=== PATIENT | male | born 1960 | race Caucasian/White ===

== ENCOUNTER → 2017-06-21 | Outpatient (CLI) | payer OTHER ==
[~2017-06-21] MED LIST: AMLODIPINE5 MG PO; ASPIRIN DELAYE325 MG PO; B12,B-12,B 12500 MC1 PO; B121000 MCG/1 IM; CARVEDILOL25 MG PO; COLCHICINE0.6 MG PO; COREG12.5 M1 PO; CRESTOR40 MG PO; ENDOCET 325 MG-1 TA1 PO; ENDOCET 650 MG-1 TA1 PO; FOLIC ACID1 MG PO; HYDR12.5C PO; INDOCIN25 MG PO; K-TAB10 MEQ PO; LANOXIN0.25 MG; LEVOXYL0.025 MG PO; LEVOXYL0.1 M1 PO; LEVOXYL0.112 MG PO; LIPITOR40 MG PO; LISINOPRIL2.5 MG; MEDROL DOSEPAK4 MG PO; NORCO 325 MG-51 TAB PO; NORVASC2.5 MG PO; PAXIL30 MG PO; PLAVIX75 MG PO; VENTOLIN H0.09 MG/AC INH; VICODIN ES 7501 TAB PO; XANAX0.25 MG PO; ZESTRIL2.5 MG PO; ZESTRIL20 MG PO; ZITHROMAX Z PA250 MG PO; Zestril,Prinivi40 MG PO
[2017-06-21 14:00] LABS: BASO # 0.1 10*3/uL (0.0-0.1); BASO % 0.6 % (0.0-1.0); EOS # 0.4 10*3/uL (0.0-0.4); EOS % 4.6 % (1.0-4.0); HEMATOCRIT 40.9 % (42.0-52.0); HEMOGLOBIN 13.7 g/dl (14.0-18.0); IG # 0.1 10*3/uL (0.0-0.1); LYMPH # 2.5 10*3/uL (1.3-4.4); LYMPH % 29.9 % (27.0-41.0); MEAN CELL VOLUME 97.1 fl (80.0-94.0); MEAN CORPUSCULAR HGB 32.5 pg (27.0-31.0); MEAN CORPUSCULAR HGB CONC 33.5 g/dl (33.0-37.0); MONO # 0.5 10*3/uL (0.1-1.0); MONO % 6.4 % (3.0-9.0); NEUT # 4.8 10*3/uL (2.3-7.9); NEUT % 57.9 % (47.0-73.0); PLATELET COUNT AUTOMATED 358 10*3/uL (130-400); RED BLOOD COUNT 4.21 10*6/uL (4.50-5.90); RED CELL DISTRI WIDTH 13.7 % (0-14.5); WHITE BLOOD COUNT 8.2 10*3/uL (4.8-10.8)
[2017-06-21 17:12] LABS: ALBUMIN 3.4 gm/dl (3.1-4.5); ALKALINE PHOSPHATASE 125 U/L (45-117); BILIRUBIN, DIRECT < 0.1 mg/dL (0.0-0.2); BILIRUBIN, TOTAL 0.2 mg/dl (0.2-1.0); BUN 15 mg/dl (7-24); CARBON DIOXIDE 25 mmol/L (21-32); CHLORIDE 109 mmol/L (98-107); CHOLESTEROL 180 mg/dL (<200); EST GLOM FILT AFRICAN AMERICAN > 60 ml/min; GLUCOSE 96 mg/dL (65-99); HDL CHOLESTEROL 31 mg/dl (40-60); LDL CHOLESTEROL 91 mg/dL (9-159); POTASSIUM 4.1 mmol/L (3.5-5.1); SGOT/AST 12 IU/L (3-35); SGPT/ALT 8 U/L (12-78); SODIUM 143 mmol/L (136-145); THYROXINE (T4) TOTAL 11.6 ug/dl (4.5-12.1); TOTAL PROTEIN 7.3 gm/dL (6.4-8.2); TRIGLYCERIDES 289 mg/dl (<150); VLDL CHOLESTEROL 58 mg/dL (6-40)
== END | disposition home or self-care (01) ==
LOC: LAB 13:28
PROVIDERS: Family Medicine
DX: Z12.5 Encounter for screening for malignant neoplasm of prostate (principal); I10 Essential (primary) hypertension; E03.9 Hypothyroidism, unspecified; R35.1 Nocturia

== ENCOUNTER → 2018-03-01 | Outpatient (CLI) | payer OTHER ==
[2018-03-01 09:12] LABS: BASO # 0.1 10*3/uL (0.0-0.1); BASO % 0.5 % (0.0-1.0); EOS # 0.5 10*3/uL (0.0-0.4); EOS % 5.4 % (1.0-4.0); HEMATOCRIT 42.5 % (42.0-52.0); HEMOGLOBIN 14.4 g/dl (14.0-18.0); LYMPH # 3.3 10*3/uL (1.3-4.4); LYMPH % 33.6 % (27.0-41.0); MEAN CELL VOLUME 100.5 fl (80.0-94.0); MEAN CORPUSCULAR HGB CONC 33.9 g/dl (33.0-37.0); MEAN PLATELET VOLUME 8.6 fl (9.6-12.3); MONO # 0.6 10*3/uL (0.1-1.0); MONO % 6.1 % (3.0-9.0); NEUT # 5.3 10*3/uL (2.3-7.9); NEUT % 54.1 % (47.0-73.0); PLATELET COUNT AUTOMATED 364 10*3/uL (130-400); RED BLOOD COUNT 4.23 10*6/uL (4.50-5.90); RED CELL DISTRI WIDTH 13.3 % (0-14.5); WHITE BLOOD COUNT 9.8 10*3/uL (4.8-10.8)
[2018-03-01 09:32] LABS: ALBUMIN 3.5 gm/dl (3.1-4.5); BILIRUBIN, DIRECT < 0.1 mg/dL (0.0-0.2); BUN 12 mg/dl (7-24); CHLORIDE 108 mmol/L (98-107); CHOLESTEROL 226 mg/dL (<200); CREATININE 0.82 mg/dL (0.70-1.30); POTASSIUM 3.9 mmol/L (3.5-5.1); SGOT/AST 9 IU/L (3-35); SGPT/ALT 9 U/L (12-78); SODIUM 141 mmol/L (136-145); TRIGLYCERIDES 270 mg/dl (<150); VLDL CHOLESTEROL 54 mg/dL (6-40)
[2018-03-01 09:40] LABS: ALKALINE PHOSPHATASE 111 U/L (45-117); HDL CHOLESTEROL 37 mg/dl (40-60); LDL CHOLESTEROL 135 mg/dL (9-159); THYROXINE (T4) TOTAL 12.4 ug/dl (4.5-12.1)
== END | disposition home or self-care (01) ==
LOC: LAB 08:28
PROVIDERS: Family Medicine
DX: E78.00 Pure hypercholesterolemia, unspecified (principal); D64.9 Anemia, unspecified; E03.9 Hypothyroidism, unspecified; R73.9 Hyperglycemia, unspecified

== ENCOUNTER → 2018-09-16 | Outpatient (CLI) | payer OTHER ==
[2018-09-16 14:20] LABS: ALBUMIN 3.6 gm/dl (3.1-4.5); ALKALINE PHOSPHATASE 110 U/L (45-117); BILIRUBIN, DIRECT < 0.1 mg/dL (0.0-0.2); BUN 13 mg/dl (7-24); CREATININE 0.97 mg/dL (0.70-1.30); SGOT/AST 10 IU/L (3-35); SGPT/ALT 18 U/L (12-78); TOTAL PROTEIN 7.4 gm/dL (6.4-8.2)
== END | disposition home or self-care (01) ==
LOC: LAB 13:18
PROVIDERS: Nurse Practitioner Family
DX: Z51.81 Encounter for therapeutic drug level monitoring (principal); Z79.899 Other long term (current) drug therapy

== ENCOUNTER → 2019-05-02 | Outpatient (CLI) | payer OTHER ==
[2019-05-02 09:51] LABS: HEMATOCRIT 39.9 % (42.0-52.0); HEMOGLOBIN 13.6 g/dl (14.0-18.0); MEAN CELL VOLUME 112.1 fl (80.0-94.0); MEAN CORPUSCULAR HGB 38.2 pg (27.0-31.0); MEAN CORPUSCULAR HGB CONC 34.1 g/dl (33.0-37.0); MEAN PLATELET VOLUME 8.7 fl (9.6-12.3); PLATELET COUNT AUTOMATED 304 10*3/uL (130-400); RED BLOOD COUNT 3.56 10*6/uL (4.50-5.90); RED CELL DISTRI WIDTH 12.2 % (0-14.5); WHITE BLOOD COUNT 8.7 10*3/uL (4.8-10.8)
[2019-05-02 10:32] LABS: ALBUMIN 3.3 gm/dl (3.1-4.5); BUN 10 mg/dl (7-24); CHLORIDE 106 mmol/L (98-107); CHOLESTEROL 224 mg/dL (<200); POTASSIUM 4.1 mmol/L (3.5-5.1); SODIUM 142 mmol/L (136-145); TRIGLYCERIDES 315 mg/dl (<150); VLDL CHOLESTEROL 63 mg/dL (6-40)
[2019-05-02 10:37] LABS: VITAMIN D, 25-HYDROXY 54.6 ng/mL (30-100)
[2019-05-02 11:25] LABS: ATYPICAL LYMPHS 1 % (0-0); BASOPHILS 1 % (0-1); PLATELET SUFFICIENCY NORMAL (NORMAL); TOTAL CELLS COUNTED 100 #CELLS
[2019-05-02 11:26] LABS: ALKALINE PHOSPHATASE 101 U/L (45-117); BILIRUBIN, DIRECT < 0.1 mg/dL (0.0-0.2); CREATININE 0.98 mg/dL (0.70-1.30); HDL CHOLESTEROL 39 mg/dl (40-60); LDL CHOLESTEROL 122 mg/dL (9-159); SGOT/AST 13 IU/L (3-35); SGPT/ALT 15 U/L (12-78); THYROXINE (T4) TOTAL 8.9 ug/dl (4.5-12.1); TOTAL PROTEIN 6.6 gm/dL (6.4-8.2)
== END | disposition home or self-care (01) ==
LOC: LAB 08:46
PROVIDERS: Family Medicine
DX: I25.10 Atherosclerotic heart disease of native coronary artery without angina pectoris (principal); E03.9 Hypothyroidism, unspecified; E55.9 Vitamin D deficiency, unspecified; R53.83 Other fatigue

== ENCOUNTER → 2019-11-27 | Outpatient (CLI) | payer OTHER ==
[2019-11-27 11:12] LABS: BASO % 0.5 % (0.0-1.0); EOS # 0.4 10*3/uL (0.0-0.4); EOS % 4.7 % (1.0-4.0); HEMATOCRIT 40.5 % (42.0-52.0); HEMOGLOBIN 13.4 g/dl (14.0-18.0); LYMPH # 2.9 10*3/uL (1.3-4.4); LYMPH % 35.7 % (27.0-41.0); MEAN CELL VOLUME 106.3 fl (80.0-94.0); MEAN CORPUSCULAR HGB 35.2 pg (27.0-31.0); MEAN CORPUSCULAR HGB CONC 33.1 g/dl (33.0-37.0); MEAN PLATELET VOLUME 8.9 fl (9.6-12.3); MONO # 0.6 10*3/uL (0.1-1.0); MONO % 7.4 % (3.0-9.0); NEUT # 4.1 10*3/uL (2.3-7.9); NEUT % 51.5 % (47.0-73.0); PLATELET COUNT AUTOMATED 396 10*3/uL (130-400); RED BLOOD COUNT 3.81 10*6/uL (4.50-5.90)
[2019-11-27 11:33] LABS: THYROID STIM HORMONE (HS) 2.49 uIU/ml (0.358-4.75)
== END | disposition home or self-care (01) ==
LOC: LAB 10:38
PROVIDERS: Family Medicine
DX: E03.9 Hypothyroidism, unspecified (principal); D64.9 Anemia, unspecified

== ENCOUNTER 2020-04-15 14:14 | Emergency (ER) | payer OTHER ==
[~2020-04-15] VITALS: Ht 190.5 cm; Wt 95.3 kg
[2020-04-15 16:51] VITALS: BP 128/75
== END 2020-04-15 16:53 | disposition home or self-care (01) ==
LOC: ED 14:14
DX: S80.01XA Contusion of right knee, initial encounter (principal); S09.90XA Unspecified injury of head, initial encounter; M25.461 Effusion, right knee; M54.5 Low back pain; R42 Dizziness and giddiness; J44.9 Chronic obstructive pulmonary disease, unspecified; I10 Essential (primary) hypertension; I25.10 Atherosclerotic heart disease of native coronary artery without angina pectoris; K21.9 Gastro-esophageal reflux disease without esophagitis; F41.9 Anxiety disorder, unspecified; F17.200 Nicotine dependence, unspecified, uncomplicated; Z98.61 Coronary angioplasty status; Z79.899 Other long term (current) drug therapy; Z79.82 Long term (current) use of aspirin; Z98.890 Other specified postprocedural states; Z90.89 Acquired absence of other organs; W10.8XXA Fall (on) (from) other stairs and steps, initial encounter; Y93.89 Activity, other specified; Y92.098 Other place in other non-institutional residence as the place of occurrence of the external cause; Y99.8 Other external cause status

== ENCOUNTER → 2020-09-17 | Outpatient (CLI) | payer OTHER ==
[2020-09-17 14:14] LABS: HEMATOCRIT 41.2 % (42.0-52.0); MEAN CELL VOLUME 108.1 fl (80.0-94.0); MEAN CORPUSCULAR HGB CONC 33.3 g/dl (33.0-37.0); MEAN PLATELET VOLUME 8.3 fl (9.6-12.3); PLATELET COUNT AUTOMATED 490 10*3/uL (130-400); RED BLOOD COUNT 3.81 10*6/uL (4.50-5.90); WHITE BLOOD COUNT 8.3 10*3/uL (4.8-10.8)
[2020-09-17 14:33] LABS: TOTAL CELLS COUNTED 100 #CELLS
[2020-09-17 14:38] LABS: PLATELET SUFFICIENCY HIGH (NORMAL)
[2020-09-17 14:39] LABS: ALBUMIN 3.3 gm/dl (3.1-4.5); ALKALINE PHOSPHATASE 153 U/L (45-117); BILIRUBIN, DIRECT < 0.1 mg/dL (0.0-0.2); BUN 12 mg/dl (7-24); CHLORIDE 107 mmol/L (98-107); CHOLESTEROL 244 mg/dL (<200); CREATININE 0.87 mg/dL (0.70-1.30); HDL CHOLESTEROL 45 mg/dl (40-60); LDL CHOLESTEROL 151 mg/dL (9-159); POTASSIUM 4.1 mmol/L (3.5-5.1); SGOT/AST 11 IU/L (3-35); SGPT/ALT 20 U/L (12-78); SODIUM 141 mmol/L (136-145); THYROXINE (T4) TOTAL 10.9 ug/dl (4.5-12.1); TOTAL PROTEIN 7.1 gm/dL (6.4-8.2); TRIGLYCERIDES 242 mg/dl (<150); VLDL CHOLESTEROL 48 mg/dL (6-40)
[2020-09-17 14:44] LABS: THYROID STIM HORMONE (HS) 0.265 uIU/ml (0.358-4.75)
== END | disposition home or self-care (01) ==
LOC: LAB 13:42
PROVIDERS: ATTEND Family Medicine
DX: Z12.5 Encounter for screening for malignant neoplasm of prostate (principal); E03.9 Hypothyroidism, unspecified; I10 Essential (primary) hypertension; D64.9 Anemia, unspecified; I25.10 Atherosclerotic heart disease of native coronary artery without angina pectoris

== ENCOUNTER → 2021-05-26 | Outpatient (CLI) | payer OTHER ==
[2021-05-26 12:15] LABS: BASO % 0.4 % (0.0-1.0); EOS # 0.2 10*3/uL (0.0-0.4); EOS % 1.9 % (1.0-4.0); HEMATOCRIT 40.2 % (42.0-52.0); LYMPH % 30.5 % (27.0-41.0); MEAN CELL VOLUME 105.2 fl (80.0-94.0); MEAN CORPUSCULAR HGB 34.6 pg (27.0-31.0); MEAN CORPUSCULAR HGB CONC 32.8 g/dl (33.0-37.0); MEAN PLATELET VOLUME 8.8 fl (9.6-12.3); MONO # 0.5 10*3/uL (0.1-1.0); MONO % 5.4 % (3.0-9.0); NEUT % 61.3 % (47.0-73.0); PLATELET COUNT AUTOMATED 399 10*3/uL (130-400); RED BLOOD COUNT 3.82 10*6/uL (4.50-5.90); RED CELL DISTRI WIDTH 12.2 % (0-14.5); WHITE BLOOD COUNT 9.8 10*3/uL (4.8-10.8)
[2021-05-26 12:43] LABS: BUN 15 mg/dl (7-24); CHLORIDE 110 mmol/L (98-107); CHOLESTEROL 211 mg/dL (<200); CREATININE 0.84 mg/dL (0.70-1.30); POTASSIUM 4.9 mmol/L (3.5-5.1); SODIUM 141 mmol/L (136-145); THYROXINE (T4) TOTAL 7.4 ug/dl (4.5-12.1); TRIGLYCERIDES 194 mg/dl (<150)
[2021-05-26 12:52] LABS: LDL CHOLESTEROL 127 mg/dL (9-159)
== END | disposition home or self-care (01) ==
LOC: LAB 11:51
PROVIDERS: ATTEND Family Medicine
DX: I10 Essential (primary) hypertension (principal); E78.5 Hyperlipidemia, unspecified; E03.9 Hypothyroidism, unspecified; Z79.899 Other long term (current) drug therapy

== ENCOUNTER → 2021-05-30 | Outpatient (CLI) | payer OTHER ==
[2021-05-30 11:18] LABS: VITAMIN D, 25-HYDROXY 59.5 ng/mL (30-100)
== END | disposition home or self-care (01) ==
LOC: LAB 09:21
PROVIDERS: ATTEND Family Medicine
DX: E55.9 Vitamin D deficiency, unspecified (principal); R73.9 Hyperglycemia, unspecified; D64.9 Anemia, unspecified

== ENCOUNTER → 2021-07-17 | Day surgery (SDC) | payer OTHER ==
[~2021-07-17] VITALS: Ht 187.9 cm; Wt 78.9 kg
[~2021-07-17] MED LIST changes: +COLACE100 MG PO; +CRESTOR20 M1 PO; +PERCOCET 5-3251 EACH PO; +VENLAFAXINE75 M1 PO; +ZEGERID 40 MG1 EACH PO; +ZOFRAN4 MG PO
[2021-07-17 09:09] VITALS: BP 149/60
[2021-07-17 11:12] VITALS: BP 170/90
[2021-07-17 11:27] VITALS: BP 126/74
[2021-07-17 11:42] VITALS: BP 161/88
[2021-07-17 11:57] VITALS: BP 141/81
[2021-07-17 12:09] VITALS: BP 127/88
== END | disposition home or self-care (01) ==
LOC: SDC 07-14 13:15
PROVIDERS: ATTEND Surgery
DX: K40.90 Unilateral inguinal hernia, without obstruction or gangrene, not specified as recurrent (principal); J44.9 Chronic obstructive pulmonary disease, unspecified; I25.10 Atherosclerotic heart disease of native coronary artery without angina pectoris; I10 Essential (primary) hypertension; K21.9 Gastro-esophageal reflux disease without esophagitis; F41.9 Anxiety disorder, unspecified; Z95.1 Presence of aortocoronary bypass graft; F17.210 Nicotine dependence, cigarettes, uncomplicated; Z79.899 Other long term (current) drug therapy; Z20.822 Contact with and (suspected) exposure to COVID-19

== ENCOUNTER → 2022-01-27 | Outpatient (CLI) | payer OTHER ==
[2022-01-27 13:09] LABS: CREATININE 0.77 mg/dL (0.70-1.30)
== END | disposition home or self-care (01) ==
LOC: LAB 12:40
PROVIDERS: ATTEND Surgery
DX: Z01.812 Encounter for preprocedural laboratory examination (principal); K40.90 Unilateral inguinal hernia, without obstruction or gangrene, not specified as recurrent

== ENCOUNTER → 2022-01-29 | Outpatient (CLI) | payer OTHER | END | disposition home or self-care (01) | LOC: CT 10:00 → LAB 10:06 | PROVIDERS: ATTEND Surgery | DX: Z01.818 Encounter for other preprocedural examination (principal); K40.90 Unilateral inguinal hernia, without obstruction or gangrene, not specified as recurrent; J43.9 Emphysema, unspecified; I25.10 Atherosclerotic heart disease of native coronary artery without angina pectoris; K44.9 Diaphragmatic hernia without obstruction or gangrene; I71.4 Abdominal aortic aneurysm, without rupture; K57.30 Diverticulosis of large intestine without perforation or abscess without bleeding ==

== ENCOUNTER → 2022-04-02 | Day surgery (SDC) | payer OTHER ==
[~2022-04-02] VITALS: Ht 190.5 cm; Wt 84.8 kg
[~2022-04-02] MED LIST changes: +HYDROCODON-ACET15 ML PO
[2022-04-02 10:18] VITALS: BP 158/88
[2022-04-02 12:30] VITALS: BP 180/93
[2022-04-02 12:45] VITALS: BP 182/89
[2022-04-02 13:00] VITALS: BP 160/72
[2022-04-02 13:15] VITALS: BP 150/84
[2022-04-02 13:30] VITALS: BP 142/82
== END | disposition home or self-care (01) ==
LOC: SDC 03-05 14:00
PROVIDERS: ATTEND Surgery
DX: K40.91 Unilateral inguinal hernia, without obstruction or gangrene, recurrent (principal); I10 Essential (primary) hypertension; E03.9 Hypothyroidism, unspecified; I25.10 Atherosclerotic heart disease of native coronary artery without angina pectoris; J44.9 Chronic obstructive pulmonary disease, unspecified; F41.9 Anxiety disorder, unspecified; F17.210 Nicotine dependence, cigarettes, uncomplicated; K21.9 Gastro-esophageal reflux disease without esophagitis; Z90.49 Acquired absence of other specified parts of digestive tract; Z95.1 Presence of aortocoronary bypass graft; Z79.899 Other long term (current) drug therapy

== ENCOUNTER → 2022-08-11 | Outpatient (CLI) | payer OTHER ==
[2022-08-11 10:34] LABS: BASO # 0.1 10*3/uL (0.0-0.1); BASO % 0.6 % (0.0-1.0); EOS # 0.4 10*3/uL (0.0-0.4); EOS % 4.7 % (1.0-4.0); HEMATOCRIT 43.7 % (42.0-52.0); LYMPH # 3.4 10*3/uL (1.3-4.4); LYMPH % 39.2 % (27.0-41.0); MEAN CELL VOLUME 100.5 fl (80.0-94.0); MEAN CORPUSCULAR HGB 34.5 pg (27.0-31.0); MEAN CORPUSCULAR HGB CONC 34.3 g/dl (33.0-37.0); MEAN PLATELET VOLUME 8.5 fl (9.6-12.3); MONO # 0.7 10*3/uL (0.1-1.0); MONO % 8.4 % (3.0-9.0); NEUT # 4.1 10*3/uL (2.3-7.9); PLATELET COUNT AUTOMATED 293 10*3/uL (130-400); RED BLOOD COUNT 4.35 10*6/uL (4.50-5.90); RED CELL DISTRI WIDTH 12.7 % (0-14.5); WHITE BLOOD COUNT 8.7 10*3/uL (4.8-10.8)
[2022-08-11 11:07] LABS: ALKALINE PHOSPHATASE 107 U/L (45-117); BUN 15 mg/dl (7-24); CHLORIDE 109 mmol/L (98-107); CHOLESTEROL 136 mg/dL (<200); CREATININE 0.86 mg/dL (0.70-1.30); LDL CHOLESTEROL 45 mg/dL (9-159); POTASSIUM 4.2 mmol/L (3.5-5.1); SGOT/AST 12 IU/L (3-35); SGPT/ALT 18 U/L (12-78); SODIUM 141 mmol/L (136-145); THYROXINE (T4) TOTAL 9.3 ug/dl (4.5-12.1); TOTAL PROTEIN 7.6 gm/dL (6.4-8.2); TRIGLYCERIDES 235 mg/dl (<150)
== END | disposition home or self-care (01) ==
LOC: LAB 10:03
PROVIDERS: ATTEND Family Medicine
DX: I11.9 Hypertensive heart disease without heart failure (principal); I25.10 Atherosclerotic heart disease of native coronary artery without angina pectoris; J44.9 Chronic obstructive pulmonary disease, unspecified; E03.9 Hypothyroidism, unspecified; E55.9 Vitamin D deficiency, unspecified; K21.9 Gastro-esophageal reflux disease without esophagitis; E78.5 Hyperlipidemia, unspecified; Z12.5 Encounter for screening for malignant neoplasm of prostate

== ENCOUNTER 2022-10-24 18:00 | Emergency (ER) | payer OTHER ==
[~2022-10-24] VITALS: Ht 190.5 cm; Wt 93.4 kg
[2022-10-24 18:41] LABS: MEAN PLATELET VOLUME 9.9 fl (9.6-12.3)
[2022-10-24 18:52] LABS: HEMATOCRIT 31.1 % (42.0-52.0); MEAN CELL VOLUME 106.5 fl (80.0-94.0); MEAN CORPUSCULAR HGB 34.9 pg (27.0-31.0); MEAN CORPUSCULAR HGB CONC 32.8 g/dl (33.0-37.0); PLATELET COUNT AUTOMATED 272 10*3/uL (130-400); RED BLOOD COUNT 2.92 10*6/uL (4.50-5.90); RED CELL DISTRI WIDTH 13.3 % (0-14.5); WHITE BLOOD COUNT 9.6 10*3/uL (4.8-10.8)
[2022-10-24 18:53] LABS: MANUAL DIFF REFLEX YES
[2022-10-24 18:57] LABS: CREATININE 2.81 mg/dL (0.70-1.30); TOTAL PROTEIN 6.7 gm/dL (6.4-8.2)
[2022-10-24 19:01] LABS: ACT PARTIAL THROMBO TIME 32.2 SECONDS (20.0-32.1)
[2022-10-24 19:17] LABS: ABG BASE EXCESS -5.1 mmol/L (-2.0-2.0); ARTERIAL BLOOD GAS PH 7.375 (7.35-7.45); ARTERIAL BLOOD GAS PO2 63.7 (80-90)
[2022-10-24 19:30] LABS: ATYPICAL LYMPHS 1 % (0-0); TOTAL CELLS COUNTED 100 #CELLS; VACUOLATION OF NEUTROPHILS SLIGHT
[2022-10-24 19:31] LABS: PLATELET SUFFICIENCY NORMAL (NORMAL)
[2022-10-24 19:32] LABS: BURR CELLS MODERATE
[2022-10-24 19:56] VITALS: BP 81/47
== END 2022-10-24 20:13 | disposition short-term general hospital (02) ==
LOC: ED 18:00
PROVIDERS: Emergency Medicine
DX: N49.3 Fournier gangrene (principal); I25.10 Atherosclerotic heart disease of native coronary artery without angina pectoris; J44.9 Chronic obstructive pulmonary disease, unspecified; K21.9 Gastro-esophageal reflux disease without esophagitis; E03.9 Hypothyroidism, unspecified; I10 Essential (primary) hypertension; Z79.899 Other long term (current) drug therapy; Z79.82 Long term (current) use of aspirin; Z90.89 Acquired absence of other organs; Z98.890 Other specified postprocedural states

== ENCOUNTER 2022-12-18 17:11 | Emergency (ER) | payer OTHER ==
[~2022-12-18] VITALS: Ht 190.5 cm; Wt 79.4 kg
[2022-12-18 18:29] LABS: BASO % 0.4 % (0.0-1.0); EOS # 0.3 10*3/uL (0.0-0.4); EOS % 5.2 % (1.0-4.0); HEMATOCRIT 27.3 % (42.0-52.0); LYMPH # 1.8 10*3/uL (1.3-4.4); LYMPH % 35.5 % (27.0-41.0); MEAN CELL VOLUME 107.5 fl (80.0-94.0); MEAN CORPUSCULAR HGB 33.9 pg (27.0-31.0); MEAN CORPUSCULAR HGB CONC 31.5 g/dl (33.0-37.0); MEAN PLATELET VOLUME 8.6 fl (9.6-12.3); MONO # 0.5 10*3/uL (0.1-1.0); MONO % 8.7 % (3.0-9.0); NEUT # 2.6 10*3/uL (2.3-7.9); PLATELET COUNT AUTOMATED 209 10*3/uL (130-400); RED BLOOD COUNT 2.54 10*6/uL (4.50-5.90); RED CELL DISTRI WIDTH 15.3 % (0-14.5); WHITE BLOOD COUNT 5.2 10*3/uL (4.8-10.8)
[2022-12-18 18:42] LABS: ACT PARTIAL THROMBO TIME 34.3 SECONDS (20.0-32.1)
[2022-12-18 18:46] LABS: ALKALINE PHOSPHATASE 147 U/L (46-116); BUN 12 mg/dl (9-23); CHLORIDE 105 mmol/L (98-107); LIPASE 18 U/L (12-53); POTASSIUM 4.8 mmol/L (3.4-5.1); SGPT/ALT 19 U/L (10-49); TOTAL PROTEIN 5.4 gm/dL (6.0-8.0)
[2022-12-18 19:29] VITALS: BP 145/74
[2022-12-21] MEDS ORDERED: VIBRAMYCIN HYC100 MG PO (17:48)
[2022-12-21] MEDS ORDERED: OMNICEF300 MG PO (17:48)
== END 2022-12-18 21:04 | disposition home or self-care (01) ==
LOC: ED 17:11
PROVIDERS: Physician Assistant
DX: S00.93XA Contusion of unspecified part of head, initial encounter (principal); Z90.89 Acquired absence of other organs; Z98.890 Other specified postprocedural states; W19.XXXA Unspecified fall, initial encounter; Y93.89 Activity, other specified; Y92.89 Other specified places as the place of occurrence of the external cause; Y99.8 Other external cause status

== ENCOUNTER → 2023-07-28 | Outpatient (CLI) | payer OTHER ==
[~2023-07-28] MED LIST changes: +AMIODARONE HYD200 MG PO; +ASPIRIN ADULT L81 M1 PO; +CARVEDILOL6.25 MG PO; +ELIQUIS5 M1 PO; +GABAPENTIN100 M2 PO; +NICODERM CQ1 EAC2 T; +OMNICEF300 MG PO; +PERCOCET 10-321 EACH PO; +PREDNISONE10 MG PO; +VALSARTAN40 MG PO; +VALTREX1000 MG PO; +VENLAFAXINE HYD75 MG PO; +VIBRAMYCIN HYC100 MG PO; +VIBRAMYCIN100 MG PO; +VITAMIN D3125 MCG PO
== END | disposition home or self-care (01) ==
LOC: US 01:20
PROVIDERS: ATTEND Urology
DX: I71.43 Infrarenal abdominal aortic aneurysm, without rupture (principal); K57.30 Diverticulosis of large intestine without perforation or abscess without bleeding; J43.9 Emphysema, unspecified; I70.0 Atherosclerosis of aorta; J84.10 Pulmonary fibrosis, unspecified; N50.0 Atrophy of testis

== ENCOUNTER → 2023-10-05 | Outpatient (CLI) | payer MEDICARE ==
[2023-10-05 11:58] LABS: BASO % 0.4 % (0.0-1.0); EOS # 0.3 10*3/uL (0.0-0.4); EOS % 3.7 % (1.0-4.0); LYMPH # 2.6 10*3/uL (1.3-4.4); LYMPH % 37.4 % (27.0-41.0); MEAN CELL VOLUME 102.4 fl (80.0-94.0); MEAN CORPUSCULAR HGB 33.1 pg (27.0-31.0); MEAN CORPUSCULAR HGB CONC 32.3 g/dl (33.0-37.0); MEAN PLATELET VOLUME 8.6 fl (9.6-12.3); MONO # 0.6 10*3/uL (0.1-1.0); MONO % 8.1 % (3.0-9.0); NEUT # 3.5 10*3/uL (2.3-7.9); NEUT % 50.1 % (47.0-73.0); PLATELET COUNT AUTOMATED 326 10*3/uL (130-400); RED BLOOD COUNT 3.81 10*6/uL (4.50-5.90); RED CELL DISTRI WIDTH 13.7 % (0-14.5)
[2023-10-05 12:37] LABS: ALKALINE PHOSPHATASE 99 U/L (46-116); BUN 14 mg/dl (9-23); CHLORIDE 107 mmol/L (98-107); LDH 149 U/L (120-246); POTASSIUM 4.4 mmol/L (3.4-5.1); TOTAL PROTEIN 6.9 gm/dL (6.0-8.0)
[2023-10-05 12:38] LABS: BETA-HCG, TUMOR MARKER < 3.0 mIU/mL (0-3); SGPT/ALT < 7 U/L (5-49)
== END | disposition home or self-care (01) ==
LOC: LAB 10:54
PROVIDERS: ATTEND Urology
DX: Z12.5 Encounter for screening for malignant neoplasm of prostate (principal); R19.00 Intra-abdominal and pelvic swelling, mass and lump, unspecified site; E78.2 Mixed hyperlipidemia

== ENCOUNTER → 2023-12-16 | Outpatient (CLI) | payer MEDICARE, MEDICAID ==
[~2023-12-16] MED LIST changes: +BREO ELLIPTA 11 EACH IH; +COREG6.25 MG PO; +CORGARD20 M1 PO; +CRESTOR5 M1 PO; +GOOD SENSE ASP325 MG PO; +LEVOTHYROXINE13 MCG PO; +LEVOXYL112 MCG PO; +LIPITOR10 MG PO; +LISINOPRIL2.5 MG PO; +NEURONTIN300 MG PO; +OMEPRAZOLE40 MG PO; +PROVENTIL HFA6.7 GM INH; +ZITHROMAX500 MG PO
[2023-12-16 12:45] LABS: BASO # 0.1 10*3/uL (0.0-0.1); BASO % 0.5 % (0.0-1.0); EOS # 0.3 10*3/uL (0.0-0.4); EOS % 3.1 % (1.0-4.0); HEMATOCRIT 37.3 % (42.0-52.0); LYMPH # 3.2 10*3/uL (1.3-4.4); LYMPH % 31.6 % (27.0-41.0); MEAN CELL VOLUME 101.9 fl (80.0-94.0); MEAN CORPUSCULAR HGB 32.5 pg (27.0-31.0); MEAN CORPUSCULAR HGB CONC 31.9 g/dl (33.0-37.0); MEAN PLATELET VOLUME 8.2 fl (9.6-12.3); MONO # 0.8 10*3/uL (0.1-1.0); MONO % 7.7 % (3.0-9.0); NEUT # 5.7 10*3/uL (2.3-7.9); NEUT % 56.5 % (47.0-73.0); PLATELET COUNT AUTOMATED 436 10*3/uL (130-400); RED BLOOD COUNT 3.66 10*6/uL (4.50-5.90); RED CELL DISTRI WIDTH 14.3 % (0-14.5); WHITE BLOOD COUNT 10.1 10*3/uL (4.8-10.8)
== END | disposition home or self-care (01) ==
LOC: LAB 12:29
PROVIDERS: ATTEND Family Medicine
DX: D51.0 Vitamin B12 deficiency anemia due to intrinsic factor deficiency (principal)